=== PATIENT | male | born 1980 | race Caucasian/White ===

== ENCOUNTER 2023-06-20 09:43 | Outpatient (OUT) | payer BC, SELFPAY ==
[2023-06-20 10:16] LABS: Basophils Absolute Auto 0.1 10^3/uL (0.0-0.1); Basophils Percent Auto 0.7 % (0.2-2.0); Eosinophils Absolute Auto 0.2 10^3/uL (0.0-0.7); Eosinophils Percent Auto 1.8 % (0.9-7.0); Hematocrit 50.4 % (42.0-54.0); Hemoglobin 16.7 g/dL (14.0-18.0); Immature Granulocytes Abs Auto 0.02 10^3/uL (0.00-0.03); Immature Granulocytes Pct Auto 0.2 % (0.0-0.5); Lymphocytes Absolute Auto 2.4 10^3/uL (1.2-3.8); Lymphocytes Percent Auto 26.8 % (20.5-60.0); Mean Corpuscular HGB Conc 33.1 g/dL (29.9-35.2); Mean Corpuscular Volume 90.5 fL (80.0-94.0); Mean Platelet Volume 11.1 fL (9.5-13.5); Monocytes Absolute Auto 0.6 10^3/uL (0.3-0.8); Monocytes Percent Auto 6.3 % (1.7-12.0); Neutrophils Absolute Auto 5.7 10^3/uL (1.4-6.5); Neutrophils Percent Auto 64.2 % (43.0-75.0); Platelet Count 230 10^3/uL (150-450); Red Blood Count 5.57 10^6/uL (4.70-6.10); White Blood Count 8.8 10^3/uL (4.0-11.0)
[2023-06-20 10:46] LABS: Estimated Average Glucose 120 mg/dL; Glycohemoglobin A1C 5.8 % (4.5-6.2)
[2023-06-20 10:50] LABS: Alanine Aminotransferase 32 U/L (16-63); Albumin Globulin Ratio 0.9; Albumin Level 4.1 g/dL (3.4-5.0); Alkaline Phosphatase 101 U/L (46-116); Anion Gap 13.7; Aspartate Amino Transferase 9 U/L (15-37); BUN Creatinine Ratio 13.6; Bilirubin Total 0.5 mg/dL (0.2-1.0); Calcium 9.4 mg/dL (8.5-10.1); Carbon Dioxide 27.5 mmol/L (21.0-32.0); Chloride 104 mmol/L (98-107); Chol HDL Ratio 3.4; Cholesterol 142 mg/dL (<=200); Estimated GFR (African America >60 (>=60); Estimated GFR (Non-African Ame >60 (>=60); Globulin 4.4 g/dL; Glucose 100 mg/dL (74-106); HDL Cholesterol 42 mg/dL (40-60); LDL Cholesterol Calculated 85.2 mg/dL; Potassium 4.2 mmol/L (3.5-5.1); Sodium 141 mmol/L (136-145); Total Protein 8.5 g/dL (6.4-8.2); Triglycerides 74 mg/dL (<=150); VLDL CHOLESTEROL 14.8 mg/dL
[2023-06-21 06:09] LABS: HIV Ab/p24 Ag Screen Non Reactive (Non Reactive)
[2023-06-21 07:09] LABS: HCV Ab Non Reactive (Non Reactive)
== END 2023-06-20 09:44 | disposition home or self-care (01) ==
LOC: LAB 09:54
PROVIDERS: PCP Nurse Practitioner Primary Care; Visit Provider Nurse Practitioner Primary Care
DX: Z11.59 Encounter for screening for other viral diseases (principal); Z00.00 Encounter for general adult medical examination without abnormal findings; Z13.6 Encounter for screening for cardiovascular disorders; Z11.4 Encounter for screening for human immunodeficiency virus [HIV]
CPT/HCPCS: 36415; 80053; 80061; 83036; 85025; 86803; 87389

== ENCOUNTER 2023-10-03 13:09 | Outpatient (OUT) | payer BC, SELFPAY ==
--- NOTE | 2023-10-03 | XR_ITS ---
The [address] [address] Patient Name: ESSENCE CHAMBERS MRN: [id number] date: 1980 Sex: M Assigned Patient Location: Current Patient Location: Accession/Order Number: [id number] Exam Date: 10/03/2023 13:40 Report Date: 10/03/2023 14:32 At the request of: TRACY ANGELES Procedure: XR foot LT min 3V PROCEDURE: XR ankle LT min 3V, XR foot LT min 3V COMPARISON: 10/03/2023 HISTORY: LEFT ANKLE PAIN FINDINGS: BONES:Contour deformity of the third fourth and fifth metatarsals likely representing remote healed fracture. Lucency proximal diaphysis of the fifth metatarsal likely represents a remote fracture. No acute fracture or dislocation. Mild degenerative change SOFT TISSUES:Moderate ankle soft tissue swelling EFFUSION:None visible. OTHER: Negative. XR/XR foot LT min 3V IMPRESSION: Soft tissue swelling No acute fracture of the foot or ankle Electronically authenticated by: OTIS TAI Date: 10/03/2023 14:32
--- NOTE | 2023-10-03 | XR_ITS ---
The [address] [address] Patient Name: ESSENCE CHAMBERS MRN: [id number] date: 1980 Sex: M Assigned Patient Location: Current Patient Location: Accession/Order Number: [id number] Exam Date: 10/03/2023 13:40 Report Date: 10/03/2023 14:32 At the request of: TRACY ANGELES Procedure: XR ankle LT min 3V PROCEDURE: XR ankle LT min 3V, XR foot LT min 3V COMPARISON: 10/03/2023 HISTORY: LEFT ANKLE PAIN FINDINGS: BONES:Contour deformity of the third fourth and fifth metatarsals likely representing remote healed fracture. Lucency proximal diaphysis of the fifth metatarsal likely represents a remote fracture. No acute fracture or dislocation. Mild degenerative change SOFT TISSUES:Moderate ankle soft tissue swelling EFFUSION:None visible. OTHER: Negative. XR/XR ankle LT min 3V IMPRESSION: Soft tissue swelling No acute fracture of the foot or ankle Electronically authenticated by: OTIS TAI Date: 10/03/2023 14:32
== END 2023-10-03 13:10 | disposition home or self-care (01) ==
LOC: EC 13:10
PROVIDERS: PCP Nurse Practitioner Primary Care; Visit Provider Podiatrist Foot & Ankle Surgery
DX: M79.672 Pain in left foot (principal); M25.572 Pain in left ankle and joints of left foot
CPT/HCPCS: 73610; 73630

== ENCOUNTER 2023-10-08 10:39 | Outpatient (RCR) | payer BC, SELFPAY | END 2023-11-08 12:09 | disposition home or self-care (01) | LOC: PT 10:39 | PROVIDERS: PCP Nurse Practitioner Primary Care; Visit Provider Podiatrist Foot & Ankle Surgery | DX: M21.6X2 Other acquired deformities of left foot (principal); R26.89 Other abnormalities of gait and mobility; M25.572 Pain in left ankle and joints of left foot | CPT/HCPCS: 97035; 97110; 97161 ==

== ENCOUNTER 2023-12-11 07:32 | Outpatient (OUT) | payer BC, SELFPAY ==
--- OUTSIDE RECORDS SUMMARY | 2023-12-11 07:34 | XMS_ITS | CCD ---
Author Organization [facility] Care Team Providers Care Rigger Name Role Phone TRACY ANGELES Admitting Unavailable TRACY ANGELES Attending Unavailable OTIS TAI V Consulting Unavailable TRACY ANGELES Consulting Unavailable RIC, DILNOOR Referring Unavailable RIC, DILNOOR Primary Care Unavailable No Pcp, No Pcp Primary Care Provider Unavaillaura e NO PCP, NO PCP Primary Care Unavailable MILTON ESPINOZA Attending Unavailable MILTON ESPINOZA Referring Unavailable NO PCP, NO PCP Primary Care Unavailable Medications Current Medications Medication Drug Class(es) Dates Sig (Normalized) Sig (Original) sertraline 50 mg oral tablet (1 source) Serotonin Reuptake Inhibitor Start: 07-23-2023 take 1 tablet by mouth once daily sertraline (ZOLOFT) 50 mg tablet take 1 tablet by mouth once daily 0 07/23/2023 Active Completed/Discontinued Medications Medication Drug Class(es) Dates Sig (Normalized) Sig (Original) ergocalciferol 1.25 mg oral capsule (1 source) Provitamin D2 Compound Start: 03-18-2021 End: 09-10-2023 take 1 capsule by mouth every week ergocalciferol (DRISDOL) 1,250 mcg (50,000 unit) capsule Take 1 capsule by mouth once a week. 0 03/18/2021 09/10/2023 Discontinued escitalopram 20 mg oral tablet (1 source) Serotonin Reuptake Inhibitor Start: 06-08-2021 End: 09-10-2023 take 1 tablet by mouth once daily escitalopram (LEXAPRO) 20 mg tablet Take 20 mg by mouth daily. 0 06/08/2021 09/10/2023 Discontinued (Therapy completed) Problems Problem Classification Problem Date Documented Da te Episodic/Chronic Other acquired deformities (1 source) Unspecified acquired deformity of left lower leg; Translations: [UNS ACQUIRED DEFORMITY LT LOWER LEG] Onset: 08-22-2019 Episodic Other connective tissue disease (4 sources) Pain in left foot; Translations: [PAIN IN LEFT FOOT] Onset: 08-20-2019 Episodic Other non-traumatic joint disorders (1 source) Acute ankle pain; Translations: [Pain in left ankle and joints of left foot] 09-10-2023 Episodic Other non-traumatic joint disorders (1 source) Pain in left ankle and joints of left foot; Translations: [Pain in left ankle and joints of left foot] Onset: 09-10-2023 Episodic Other non-traumatic joint disorders (1 source) Ankle pain Onset: 09-10-2023 Episodic Results Test Name Value Interpretation Reference Range Facil ity XR ANKLE LT MIN 3 VWSon XR ANKLE LT MIN 3 VWS XR ANKLE LT MIN 3 VWS XR ANKLE LT MIN 3 VWS INDICATION: Pain COMPARISON: 09/11/2021 FINDINGS: No acute fracture or dislocation. Talar dome intact. Symmetric ankle more Tis. Circumferential soft tissue swelling. Redemonstrated deformity of the fifth metatarsal. IMPRESSION: Soft tissue swelling without acute osseous abnormality of the ankle. Redemonstrated deformity of the fifth metatarsal. Finalized by Agustin [place] MD on 09/10/2023 10:30 AM [facility] XR Ankle - left 3 Viewson XR ANKLE LT MIN 3 VW S INDICATION: Pain COMPARISON: 09/11/2021 FINDINGS: No acute fracture or dislocation. Talar dome intact. Symmetric ankle more Tis. Circumferential soft tissue swelling. Redemonstrated deformity of the fifth metatarsal. IMPRESSION: Soft tissue swelling without acute osseous abnormality of the ankle. Redemonstrated deformity of the fifth metatarsal. Finalized by Agustin [place] MD on 09/10/2023 10:30 AM [facility] Agustin Joseph MD - 09/10/2023 XR ANKLE LT MIN 3 VWS INDICATION: Pain COMPARISON: 09/11/2021 FINDINGS: No acute fracture or dislocation. Talar dome intact. Symmetric ankle more Tis. Circumferential soft tissue swelling. Redemonstrated deformity of the fifth metatarsal. IMPRESSION: Soft tissue swelling without acute osseous abnormality of the ankle. Redemonstrated deformity of the fifth metatarsal. Finalized by Agustin [place] MD on 09/10/2023 10:30 AM [facility] Study observation (narrative) [facility] XR Ankle - left 3 ViewsOrder ed By: Agustin Joseph on 09-10-2023 [employer] Work Phone: B12/Folate Panelon Cobalamin (Vitamin B12) [Mass/Vol] 652 pg/mL Normal 232-1245 [facility] Comment on above: Performed By: #### T SHX, VD25, B12FOL, CP, GLYHGB, CDP #### [facility] [address] [place] [address] [phone] Champagne Maker: Jesse Gardner MD Folic Acid 9.6 ng/mL Normal >4.8 [facility] Comment on above: Performed By: #### T SHX, VD25, B12FOL, CP, GLYHGB, CDP #### [facility] [address] [place] [address] [phone] Champagne Maker: Jesse Gardner MD CBC with Diffon 6 Abs. Basophil 0.06 k/uL Normal 0.00-0.20 [facility] Comment on above: Performed By: #### T SHX, VD25, B12FOL, CP, GLYHGB, CDP #### [facility] [address] [place] [phone] Champagne Maker: eJsse Gardner MD Abs.Imm.Granulocyt e 0.03 k/uL Normal 0.00-0.30 [facility] Comment on above: Performed By: #### T SHX, VD25, B12FOL, CP, GLYHGB, CDP #### [facility] [address] [place] [phone] Champagne Maker: Jesse Gardner MD Abs.Neutrophil (Seg) 5.69 k/uL Normal 1.50-8.10 [facility] Comment on above: Performed By: #### T SHX, VD25, B12FOL, CP, GLYHGB, CDP #### [facility] [address] [place] [phone] Champagne Maker: Jesse Gardner MD Basophils/100 WBC (Bld) 1 % Normal 0-2 [facility] Comment on above: Performed By: #### T SHX, VD25, B12FOL, CP, GLYHGB, CDP #### [address] [address] Champagne Maker: Jesse Gardner MD Eosinophils (Bld) [#/Vol] 0.20 10*3/uL Normal 0.00-0.44 [facility] Comment on above: Performed By: #### T SHX, VD25, B12FOL, CP, GLYHGB, CDP #### [address] [address] Champagne Maker: Jesse Gardner MD Eosinophils/100 WBC (Bld) 2 % Normal 1-4 [facility] Comment on above: Performed By: #### T SHX, VD25, B12FOL, CP, GLYHGB, CDP #### [address] [address] Champagne Maker: Jesse Gardner MD Erythrocyte distribution width (RBC) [Ratio] 12.5 % Normal 11.8-14.4 [facility] Comment on above: Performed By: #### T SHX, VD25, B12FOL, CP, GLYHGB, CDP #### [facility] [address] [place] [phone] Champagne Maker: Jeses Gardner MD Hematocrit (Bld) [Volume fraction] 51.5 % High 40.7-50.3 [facility] Comment on above: Performed By: #### T SHX, VD25, B12FOL, CP, GLYHGB, CDP #### [facility] [address] [place] [phone] Champagne Maker: Jesse Gardner MD Hemoglobin (Bld) [Mass/Vol] 16.4 g/dL Normal 13.0-17.0 [facility] Comment on above: Performed By: #### T SHX, VD25, B12FOL, CP, GLYHGB, CDP #### [address] [address] Champagne Maker: Jesse Gardner MD Immature granulocytes/100 WBC (Bld) 0 % Normal 0 [facility] Comment on above: Performed By: #### T SHX, VD25, B12FOL, CP, GLYHGB, CDP #### [address] [address] Champagne Maker: Jesse Gardner MD Lymphocytes (Bld) [#/Vol] 1.58 10*3/uL Normal 1.10-3.70 [facility] Comment on above: Performed By: #### T SHX, VD25, B12FOL, CP, GLYHGB, CDP #### [address] [address] Champagne Maker: Jesse Gardner MD Lymphocytes/100 WBC (Bld) 19 % Low 24-43 [facility] Comment on above: Performed By: #### T SHX, VD25, B12FOL, CP, GLYHGB, CDP #### [address] [address] Champagne Maker: Jesse Gardner MD MCH (RBC) [Entitic mass] 29.1 pg Normal 25.2-33.5 [facility] Comment on above: Performed By: #### T SHX, VD25, B12FOL, CP, GLYHGB, CDP #### [address] [address] Champagne Maker: Jesse Gardner MD MCHC (RBC) [Mass/Vol] 31.8 g/dL Normal 28.4-34.8 [facility] Comment on above: Performed By: #### T SHX, VD25, B12FOL, CP, GLYHGB, CDP #### [address] [address] Champagne Maker: Jesse Gardner MD MCV (RBC) [Entitic vol] 91.5 fL Normal 82.6-102.9 [facility] Comment on above: Performed By: #### T SHX, VD25, B12FOL, CP, GLYHGB, CDP #### [address] [address] Champagne Maker: Jesse Gardner MD Monocytes (Bld) [#/Vol] 0.70 10*3/uL Normal 0.10-1.20 [facility] Comment on above: Performed By: #### T SHX, VD25, B12FOL, CP, GLYHGB, CDP #### [address] [address] Champagne Maker: Jesse Gardner MD Monocytes/100 WBC (Bld) 9 % Normal 3-12 [facility] Comment on above: Performed By: #### T SHX, VD25, B12FOL, CP, GLYHGB, CDP #### [place] [address] Champagne Maker: Jesse Gardner MD Neutrophil (Seg) 69 % High 36-65 [facility] Comment on above: Performed By: #### T SHX, VD25, B12FOL, CP, GLYHGB, CDP #### [address] [address] Champagne Maker: Jesse Gardner MD NRBC Automated 0.0 per 100 WBC Normal 0.0 [facility] Comment on above: Performed By: #### T SHX, VD25, B12FOL, CP, GLYHGB, CDP #### [address] [address] Champagne Maker: Jesse Gardner MD Platelet mean volume (Bld) [Entitic vol] 12.0 fL Normal 8.1-13.5 [facility] Comment on above: Performed By: #### T SHX, VD25, B12FOL, CP, GLYHGB, CDP #### [address] [address] Champagne Maker: Jesse Gardner MD Platelets (Bld) [#/Vol] 228 10*3/uL Normal 138-453 [facility] Comment on above: Performed By: #### T SHX, VD25, B12FOL, CP, GLYHGB, CDP #### [address] [address] Champagne Maker: Jesse Gardner MD RBC (Bld) [#/Vol] 5.63 10*6/uL Normal 4.21-5.77 [facility] Comment on above: Performed By: #### T SHX, VD25, B12FOL, CP, GLYHGB, CDP #### [address] [address] Champagne Maker: Jesse Gardner MD WBC (Bld) [#/Vol] 8.3 10*3/uL Normal 3.5-11.3 [facility] Comment on above: Performed By: #### T SHX, VD25, B12FOL, CP, GLYHGB, CDP #### [address] [address] Champagne Maker: Jesse Gardner MD Auto Diff Performed NOT REPORTED Normal [facility] Comment on above: Performed By: #### T SHX, VD25, B12FOL, CP, GLYHGB, CDP #### [address] [address] Champagne Maker: Jesse Gardner MD Platelet Estimate NOT REPORTED Normal [facility] Comment on above: Performed By: #### T SHX, VD25, B12FOL, CP, GLYHGB, CDP #### [facility] [place] [address] Champagne Maker: Jesse Gardner MD RBC morphology finding Nom (Bld) NOT REPORTED Normal [facility] Comment on above: Performed By: #### T SHX, VD25, B12FOL, CP, GLYHGB, CDP #### [facility] [address] [place] [phone] Champagne Maker: Jesse Gardner MD WBC Morphology NOT REPORTED Normal [facility] Comment on above: Performed By: #### T SHX, VD25, B12FOL, CP, GLYHGB, CDP #### [address] [address] Champagne Maker: Jesse Gardner MD Comp Metabolic Profon 2020 (cont.) Normal [facility] Comment on above: Result Comment: Aver age GFR for 30-39 years old: 107 mL/min/1.73sq m Chronic Kidney Disease: <60 mL/min/1.73sq m Kidney failure: <15 mL/min/1.73sq m eGFR calculated using average adult body mass. Additional eGFR calculator available at: http://www.[employer].SiTime/multiple_crcl_2012.htm Performed By: #### T SHX, VD25, B12FOL, CP, GLYHGB, CDP #### [facility] [place] [address] Champagne Maker: Jesse Gardner MD Albumin [Mass/Vol] 4.4 g/dL Normal 3.5-5.2 [facility] Comment on above: Performed By: #### T SHX, VD25, B12FOL, CP, GLYHGB, CDP #### [facility] [address] [place] [phone] Champagne Maker: Jesse Gardner MD Albumin/Glob Ratio 1.4 Normal 1.0-2.5 [facility] Comment on above: Performed By: #### T SHX, VD25, B12FOL, CP, GLYHGB, CDP #### [facility] [address] [place] [phone] Champagne Maker: Jesse Gardner MD Alkaline Phos 103 U/L Normal 40-129 [facility] Comment on above: Performed By: #### T SHX, VD25, B12FOL, CP, GLYHGB, CDP #### [address] [address] Champagne Maker: Jesse Gardner MD ALT [Catalytic activity/Vol] 26 U/L Normal 5-41 [facility] Comment on above: Performed By: #### T SHX, VD25, B12FOL, CP, GLYHGB, CDP #### [facility] [address] [place] [phone] Champagne Maker: Jesse Gardner MD Anion gap [Moles/Vol] 15 mmol/L Normal 9-17 [facility] Comment on above: Performed By: #### T SHX, VD25, B12FOL, CP, GLYHGB, CDP #### [facility] [address] [place] [address] Champagne Maker: Jesse Gardner MD AST [Catalytic activity/Vol] 21 U/L Normal <40 [facility] Comment on above: Performed By: #### T SHX, VD25, B12FOL, CP, GLYHGB, CDP #### [facility] [address] [place] [phone] Champagne Maker: Jesse Gardner MD Bilirubin [Mass/Vol] 0.55 mg/dL Normal 0.3-1.2 [facility] Comment on above: Performed By: #### T SHX, VD25, B12FOL, CP, GLYHGB, CDP #### [address] [address] Champagne Maker: Jesse Gardner MD Calcium [Mass/Vol] 9.4 mg/dL Normal 8.6-10.4 [facility] Comment on above: Performed By: #### T SHX, VD25, B12FOL, CP, GLYHGB, CDP #### [address] [address] Champagne Maker: Jesse Gardner MD Chloride [Moles/Vol] 106 mmol/L Normal 98-107 [facility] Comment on above: Performed By: #### T SHX, VD25, B12FOL, CP, GLYHGB, CDP #### [address] [address] Champagne Maker: Jesse Gardner MD CO2 [Moles/Vol] 19 mmol/L Low 20-31 [facility] Comment on above: Performed By: #### T SHX, VD25, B12FOL, CP, GLYHGB, CDP #### [address] [address] Champagne Maker: Jesse Gardner MD Creatinine [Mass/Vol] 0.76 mg/dL Normal 0.70-1.20 [facility] Comment on above: Performed By: #### T SHX, VD25, B12FOL, CP, GLYHGB, CDP #### [facility] [address] [place] [address] Champagne Maker: Jesse Gardner MD GFR, Amer >60 Normal >60 [facility] Comment on above: Performed By: #### T SHX, VD25, B12FOL, CP, GLYHGB, CDP #### [facility] [address] [place] [address] Champagne Maker: Jesse Gardner MD GFR,non Amer >60 Normal >60 [facility] Comment on above: Performed By: #### T SHX, VD25, B12FOL, CP, GLYHGB, CDP #### [facility] [address] [place] [address] Champagne Maker: Jesse Gardner MD Glucose [Mass/Vol] 88 mg/dL Normal 70-99 [facility] Comment on above: Performed By: #### T SHX, VD25, B12FOL, CP, GLYHGB, CDP #### [address] [address] Champagne Maker: Jesse Gardner MD Potassium [Moles/Vol] 4.3 mmol/L Normal 3.7-5.3 [facility] Comment on above: Performed By: #### T SHX, VD25, B12FOL, CP, GLYHGB, CDP #### [address] [address] Champagne Maker: Jesse Gardner MD Protein [Mass/Vol] 7.6 g/dL Normal 6.4-8.3 [facility] Comment on above: Performed By: #### T SHX, VD25, B12FOL, CP, GLYHGB, CDP #### [facility] [address] [place] [phone] Champagne Maker: Jesse Gardner MD Sodium [Moles/Vol] 140 mmol/L Normal 135-144 [facility] Comment on above: Performed By: #### T SHX, VD25, B12FOL, CP, GLYHGB, CDP #### [facility] [address] [place] [phone] Champagne Maker: Jesse Gardner MD Urea nitrogen [Mass/Vol] 10 mg/dL Normal 6-20 [facility] Comment on above: Performed By: #### T SHX, VD25, B12FOL, CP, GLYHGB, CDP #### [facility] [address] [place] [phone] Champagne Maker: Jesse Gardner MD BUN/CRE Ratio NOT REPORTED Normal - [facility] Comment on above: Performed By: #### T SHX, VD25, B12FOL, CP, GLYHGB, CDP #### [facility] [place] [address] Champagne Maker: Jesse Gardner MD Staging: NOT REPORTED Normal [facility] Comment on above: Performed By: #### T SHX, VD25, B12FOL, CP, GLYHGB, CDP #### [facility] [address] [place] [phone] Champagne Maker: Jesse Gardner MD Hemoglobin A1Con 03-17-2021 Glucose [Mass/Vol] 108 mg/dL Normal [facility] Comment on above: Result Comment: The ADA and AACC recommend providing the estimated average glucose result to permit better patient understanding of their HBA1c result. Performed By: #### T SHX, VD25, B12FOL, CP, GLYHGB, CDP #### [facility] [address] [place] [phone] Champagne Maker: Jesse Gardner MD HbA1c (Bld) [Mass fraction] 5.4 % Normal 4.0-6.0 [facility] Comment on above: Performed By: #### T SHX, VD25, B12FOL, CP, GLYHGB, CDP #### [facility] [address] [place] [phone] Champagne Maker: Jesse Gardner MD TSH w/reflex to FT4on 2020 TSH Qn 1.26 m[IU]/L Normal 0.30-5.00 [facility] Comment on above: Performed By: #### T SHX, VD25, B12FOL, CP, GLYHGB, CDP #### [facility] [address] [place] [phone] Champagne Maker: Jesse Gardner MD Vitamin D 25 OHon 03-17-2021 Vitamin D 25 OH 29.0 ng/mL Low 30.0-100.0 [facility] Comment on above: Result Comment: Reference Range: Vitamin D status Range Deficiency <20 ng/mL Mild Deficiency 20-30 ng/mL Sufficiency 30-100 ng/mL Toxicity >100 ng/mL Performed By: #### T SHX, VD25, B12FOL, CP, GLYHGB, CDP #### [facility] [address] [phone] Champagne Maker: Jesse Gardner MD XR FOOT LT MIN 3 VIEWSon XR FOOT LT MIN 3 VIEWS Patient: WILFREDO EUCEDA Exam Date: 08/20/2019 : 1980 Gender:M Ordering : DR. TRACY FelixPRajwinder Admission #: [id number] Family : Order #: [id number] CLICK HERE TO VIEW EXAM RADIOLOGY REPORT PROCEDURE: RADIOGRAPH FOOT LEFT MIN 3 VIEWS COMPARISON: None. INDICATIONS: Chronic left lateral foot pain for one month without injury, initial imaging FINDINGS: BONES: No acute fracture or dislocation. Contour deformity of the midfoot/forefoot, developmental versus posttraumatic. Flattening of the plantar arch. SOFT TISSUES: No visible soft tissue swelling or radiopaque foreign body. OTHER: Negative. CONCLUSION: 1. Convex lateral contour deformity of the midfoot/forefoot , posttraumatic versus congenital change Dictated by: Otis Tai M.D. on 08/20/2019 at 13:17 Approved by: Otis Tai M.D. on 08/20/2019 at 13:19 Normal [facility] Vital Signs Date Time Vital Sign Value Performing Clinician Faci lity 09-10-2023 09:59-0500 Body height 188 cm [facility] 09-10-2023 09:59-0500 Body mass index (BMI) [Ratio] 33.38 kg/m2 [facility] Hospital[facility]atforaORDNANCE OFFICER Work Phone: [facility] 09-10-2023 09:590500 Body temperature 97.2 [degF] Milton Mitch PRODUCTION CONTROL SPECIALIST-ORDNANCE OFFICER Work Phone: [facility] [employer] 09-10-2023 09:59-0500 Body weight 117.94 kg Milton Espinoza PRODUCTION CONTROL SPECIALIST-ORDNANCE OFFICER Work Phone: [facility] 09-10-2023 09:59-0500 Diastolic blood pressure 67 mm[Hg] Milton Kovacsum PRODUCTION CONTROL SPECIALIST-ORDNANCE OFFICER Work Phone: [facility] 09-10-2023 09:59-0500 Heart rate 113 /min Milton Mitch PRODUCTION CONTROL SPECIALIST-ORDNANCE OFFICER Work Phone: [facility] [employer] 09-10-2023 09:59-0500 Respiratory rate 20 /min Milton Mitch PRODUCTION CONTROL SPECIALIST-ORDNANCE OFFICER Work Phone: [facility] 09-10-2023 09:59-0500 SaO2% (BldA) [Mass fraction] 97 % Miltondavid Kovacsum PRODUCTION CONTROL SPECIALIST-ORDNANCE OFFICER Work Phone: [facility] [employer] 09-10-2023 09:59-0500 Systolic blood pressure 146 mm[Hg] [facility] CenterNPlatforaORDNANCE OFFICER Work Phone: [facility] Encounters Encounter Date Encounter Type Care Provider Facility Start: 09-10-2023 End: 09-11-2023 ambulatory [facility] Start: 09-10-2023 End: 09-10-2023 Office outpatient visit 15 minutes Milton Espinoza PRODUCTION CONTROL SPECIALIST-ORDNANCE OFFICER Work Phone: [facility] Comment on above: Acute left ankle jose n (Primary Dx) Start: 03-17-2021 End: 03-18-2021 ambulatory REESE LARIOS [facility] Start: 08-20-2019 End: 08-21-2019 [facility] encounter [facility] Facility:H[facility] Procedures Date Procedure Procedure Detail Performing Clinician Start: 09-10-2023 Radex ankle complete minimum 3 views Milton Kovacsum PRODUCTION CONTROL SPECIALIST-ORDNANCE OFFICER Work Phone: Plan of Treatment Date Care Activity Detail Author Start: 06-20-2033 DTaP,Tdap and Td Vaccines (2 - Td or Tdap) DTaP,Tdap and Td Vaccines (2 - Td or Tdap) [facility] Start: 09-10-2024 Adult BMI Screening Adult BMI Screen ing [facility] Start: 09-10-2024 Tobacco Screening Tobacco Screening [facility] Start: 04-06-2023 Influenza vaccination Influenza Vacc ine [facility] Start: 02-18-2000 Adult BMI Follow Up Plan Adult BMI Follow Up Plan [facility] Start: 1994 Depression Screening Depression Scre ening [facility] Start: 1982 Tobacco Counseling Tobacco Counselin g [facility] Payers Date Payer Category Payer Unknown CLAUDIA LIU SS (PPO) [id number] 2023-Present [phone] [address] [place] [address] [id number] 2023 Unknown [id number] 2021 Private Health Insurance [id number] 1980 Unknown [id number] 1980 Unknown [id number] 1980 Unknown [id number] 1980 Unknown [id number] 1957 Self-pay Social History Date Type Detail Facility Start: 09-10-2023 [facility] History of tobacco use Cigarette Smoker P [facility] Start: 09-10-2023 Tobacco use and exposure Smokeless tobacco non-user [facility] Start: 01-13-2019 End: 09-10-2023 History of Social function [facility] Start: 01-13-2019 End: 09-10-2023 Tobacco use panel [facility]: 1980 Sex Assigned At Not on file P [facility] History of Present illness Narrative 09-10-2023 Milton Espinoza, PRODUCTION CONTROL SPECIALIST-ORDNANCE OFFICER - 09/10/2023 9:30 AM EST Note Date & Type Note Facility 09-10-2023 History of Present illness Narrative Subjective: Patient ID: Wilfredo Euceda is a 43 y.o. male. Chief Complaint Patient presents with Ankle Pain X1 week--> unknown cause, no known injury HPI This is a 43-year-old male that presents to the urgent care setting for evaluation of ankle pain. Patient has pain to the inside of the left ankle. He denies any injury, fall, or trauma but he does have a history of osteogenesis imperfecta. States it has been bothering him for a week without any specific injury. The pain is worse when he tries to walk on it. He has been wearing a walking boot. The following portions of the patient's history were reviewed and updated as appropriate: allergies, current medications, past family history, past medical history, past social history, past surgical history and problem list. Review of Systems Constitutional: Negative for chills and fever. Musculoskeletal: Left ankle pain Neurological: Negative for weakness and numbness. Past Medical History: Diagnosis Date Osteogenesis imperfecta No past surgical history on file. Social History Tobacco Use Smoking status: Every Day Types: Cigarettes Smokeless tobacco: Never No family history on file. No Known Allergies Current Outpatient Medications on File Prior to Visit Medication Sig Dispense Refill sertraline (ZOLOFT) 50 mg tablet take 1 tablet by mouth once daily No current facility-administered medications on file prior to visit. Objective: Vitals: 09/10/23 0959 BP: 146/67 Pulse: 113 Resp: 20 Temp: 36.2 C (97.2 F) TempSrc: Temporal SpO2: 97% Weight: 117.9 kg (260 lb) Height: 188 cm (6' 2 ) No LMP for male patient. Body mass index is 33.38 kg/m . Facility age limit for growth %natalia is 20 years. Physical Exam Vitals reviewed. Constitutional: Appearance: Normal appearance. HENT: Head: Normocephalic and atraumatic. Mouth/Throat: Mouth: Mucous membranes are moist. Eyes: Conjunctiva/sclera: Conjunctivae normal. Pulmonary: Effort: Pulmonary effort is normal. No respiratory distress. Musculoskeletal: Comments: Patient has some tenderness to palpation to the left medial ankle. Rivera's test negative Skin: General: Skin is warm and dry. Neurological: Mental Status: He is alert. X-ray ankle left minimum 3 views Result Date: 09/10/2023 Narrative: XR ANKLE LT MIN 3 VWS INDICATION: Pain COMPARISON: 09/11/2021 FINDINGS: No acute fracture or dislocation. Talar dome intact. Symmetric ankle more Tis. Circumferential soft tissue swelling. Redemonstrated deformity of the fifth metatarsal. IMPRESSION: Soft tissue swelling without acute osseous abnormality of the ankle. Redemonstrated deformity of the fifth metatarsal. Finalized by Agustin Joseph MD on 09/10/2023 10:30 AM Assessment/Plan: Patient has no evidence of fracture at this time. Patient good continue to wear his walking boot. Offered him a orthopedic referral but declines and states he will see how it feels. Labs for this visit: No visits with results within 1 Day(s) from this visit. Latest known visit with results is: No results found for any previous visit. Wilfredo was seen today for ankle pain. Diagnoses and all orders for this visit: Acute left ankle pain - X-ray ankle left minimum 3 views Orders Placed or Reconciled This Encounter Medications sertraline (ZOLOFT) 50 mg tablet Sig: take 1 tablet by mouth once daily Patient Instructions Please consider immediate medical re-evaluation from a healthcare provider for any worsening, concerning, or new symptoms. Please contact your primary care physician's office within the next 1-2 business days to share the information that has been discussed with you during today's visit. If you do not have a primary care physician, please consider returning to urgent care or the nearest emergency dept. for evaluation of non-improving symptoms until you are established with a primary care practice. If you have been prescribed any medications during your visit today, those medications have been discussed with you including: Dose, frequency, duration, and potential side effects. Every individual responds differently to each medication, please use caution until you understand how each medication affects you individually. If you have been recommended [id number] medications please use those medications as indicated on their packaging detail. This note is dictated with the use of M*Modal.Please note that this dictation was completed with computer voice recognition software. Quite often unanticipated grammatical, syntax, homophones, and other interpretive errors are inadvertently transcribed by the computer software. Please disregard these errors. Please excuse any errors that have escaped final proofreading. I personally discussed test results with patient/parent. Education handout and discharge papers given. Paperwork explained. Denies questions or concerns. Discussed that follow up care is usually required after a visit to the Urgent care. It is your responsibility to contact your primary care provider for follow up. If symptoms are not improving, worsening, or concerning symptoms of illness develop, follow up with your primary care provider or go to the nearest Emergency Department for further care immediately. MADI Carroll 09/10/23 1148 documented in this encounter [facility] [employer] Instructions 09-10-2023 Patient InstructionsAttachments Note Date & Type Note Facility 09-10-2023 Instructions MADI Carroll - 09/10/2023 9:30 AM EST Please consider immediate medical re-evaluation from a healthcare provider for any worsening, concerning, or new symptoms. Please contact your primary care physician's office within the next 1-2 business days to share the information that has been discussed with you during today's visit. If you do not have a primary care physician, please consider returning to urgent care or the nearest emergency dept. for evaluation of non-improving symptoms until you are established with a primary care practice. If you have been prescribed any medications during your visit today, those medications have been discussed with you including: Dose, frequency, duration, and potential side effects. Every individual responds differently to each medication, please use caution until you understand how each medication affects you individually. If you have been recommended [id number]-[id number] medications please use those medications as indicated on their packaging detail. The following attachments cannot be sent through Care Everywhere.Joint Pain (Yoruba)documented in this encounter [facility] Evaluation note Note Date & Type Note Facility Evaluation note Diagnosis Acute left ankle pain- Primary documented in this encounter [facility] Summary Purpose Family History No Family History Records FoundNo Family History Records FoundNo Family History Records Found Advance Directives No Advanced Directives Records FoundNo Advanced Directives Records FoundNo Advanced Directives Records Found Additional Source Comments (unrecognized sect ion and content) No Status Records FoundNo Status Records FoundNo Status Records Found INFORMATION SOURCE (unrecogn ized section and content) DATE CREATED AUTHOR 08/22/2019 [facility] DATE CREATED AUTHOR AUTHOR'S ORGANIZ ATION 03/18/2021 [facility] DATE CREATED AUTHOR AUTHOR'S ORGANIZ ATION 09/16/2023 [facility] Care Teams (unrecognized sec tion and content) Rigger Relationship Specialty Start Date End Date No Pcp[place] [address] PCP - General Family Medicine 09/11/21 FOR RECORDS PERTAINING TO PATIENTS WHO ARE OR HAVE BEEN ENROLLED IN A CHEMICAL DEPENDENCY/SUBSTANCEABUSE PROGRAM, SOME INFORMATION MAY BE OMITTED. This clinical summary was aggregated from multiple sources. Caution should be exercised in using it in the provision of clinical care. This summary normalizes information from multiple sources, and as a consequence, information in this document may materially change the coding, format and clinical context of patient data. In addition, data may be omitted in some cases. CLINICAL DECISIONS SHOULD BE BASED ON THE PRIMARY CLINICAL RECORDS. [facility]. provides no warranty or guarantee of the accuracy or completeness of information in this document.
--- NOTE | 2023-12-11 07:35 | MR_ITS ---
The [address] [address] Patient Name: ESSENCE CHAMBERS MRN: [id number] date: 1980 Sex: M Assigned Patient Location: MRI Current Patient Location: Accession/Order Number: [id number] Exam Date: 12/11/2023 07:50 Report Date: 12/13/2023 08:18 At the request of: MICHEL DISLA Procedure: MR ankle LT wo con EXAM: MR ankle LT wo con REASON FOR EXAM: Posterior Tibial Tendinitis Left Leg. TECHNIQUE: Multiplanar, multisequence imaging of the left ankle was performed without contrast COMPARISON: Radiographs 11/01/2023. FINDINGS: There is focal intense bone marrow edema involving the talus. There is some curvilinear T1 and T2 hypointense signal involving the medial talar dome. A discrete osteochondral defect identified. This favors to represent a high-grade stress fracture/stress response involving the talus. There is also moderate bone marrow edema involving the posterior lateral calcaneus at the level the subtalar joint, this also likely reflects at least intermediate grade stress response given no history of recent trauma. The sinus tarsi is mildly narrowed and moderately edematous. Small tibiotalar and subtalar effusions are present. There is also abnormal marrow signal involving the cuboid bone at the calcaneal cuboid joint, which could also reflect low to intermediate grade stress response potentially due to altered biomechanics. 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 The plantar musculature demonstrates normal bulk and signal. Remaining soft tissues are unremarkable. The Achilles tendon demonstrates minimal thickening and intermediate signal consistent with tendinosis. No tear. The plantar fascia appears intact. Laterally, the peroneus longus tendon proximally appears thickened with intermediate signal. At the level the lateral malleolus extending distally to the peroneal tunnel, the tendon is thin and attenuated raises suspicion of intermediate to high-grade partial tearing. Thickening and intermediate signal of the peroneus brevis tendon at the inframalleolar level consistent with tendinosis. A discrete tear not identified. Thickening and intermediate signal of the anterior talofibular ligament and calcaneofibular ligaments is consistent with prior lateral ligamentous injury. No acute lateral ligamentous injury identified. Medially, the medial flexor tendons demonstrate normal thickness and signal without tendinosis or tear. The deep deltoid ligament appears intact. The spring ligament is intact. Limited evaluation of the Lisfranc ligament appears intact. Anteriorly, the anterior extensor tendons demonstrate normal thickness and signal without tendinosis or tear. MR/MR ankle LT wo con IMPRESSION: 1. Significant abnormal marrow edema throughout the talus with some curvilinear T1 and T2 hypointense signal involving the medial talar dome favors represent a high-grade stress fracture. No definite evidence of avascular necrosis. Likely low to intermediate grade stress responses in the subjacent calcaneus at the level of the posterior subtalar joint as well as the cuboid bone. 2. Peroneal tendinosis with high-grade partial tearing of the peroneus longus tendon. A complete rupture not identified. 3. Sequela of prior lateral ligamentous injury. No evidence of acute ligamentous injury identified. 4. Mild Achilles tendinosis without tear Electronically authenticated by: JENNIFER WALL Date: 12/13/2023 08:18
== END 2023-12-11 07:33 | disposition home or self-care (01) ==
LOC: MRI 07:32
PROVIDERS: PCP Nurse Practitioner; Visit Provider Physician Assistant
DX: M76.822 Posterior tibial tendinitis, left leg (principal); M76.72 Peroneal tendinitis, left leg; M76.62 Achilles tendinitis, left leg
CPT/HCPCS: 73721

== ENCOUNTER 2024-01-16 09:02 | Outpatient (OUT) | payer BC, SELFPAY ==
--- NOTE | 2024-01-16 | XR_ITS ---
[address] [address] Patient Name: ESSENCE CHAMBERS MRN: [id number] date: 1980 Sex: M Assigned Patient Location: Current Patient Location: Accession/Order Number: [id number] Exam Date: 01/16/2024 09:05 Report Date: 01/16/2024 13:01 At the request of: TRACY ANGELES Procedure: XR ankle LT min 3V PROCEDURE: XR ankle LT min 3V COMPARISON: 10/03/2023 HISTORY: LEFT ANKLE PAIN FINDINGS: BONES:Stable exam with no acute fracture or dislocation. No new lytic or sclerotic changes SOFT TISSUES:Moderate soft tissue swelling EFFUSION:None visible. OTHER: Negative. XR/XR ankle LT min 3V IMPRESSION: No acute bony abnormality Electronically authenticated by: OTIS TAI Date: 01/16/2024 13:01
== END 2024-01-16 09:03 | disposition home or self-care (01) ==
PROVIDERS: PCP Nurse Practitioner; Visit Provider Podiatrist Foot & Ankle Surgery
DX: M19.172 Post-traumatic osteoarthritis, left ankle and foot (principal)
CPT/HCPCS: 73610